=== PATIENT | female | born 1955 | race Caucasian/White ===

== ENCOUNTER 2019-11-13 11:39 | Outpatient (CLI) | payer MEDICARE, SELFPAY ==
[2019-11-13 12:38] LABS: HCT 40.2 % (36.0-46.0); HGB 13.3 g/dL (12.0-15.5); Mean Corp. HGB Concentration 33.1 g/dL (32.0-36.0); Mean Corpuscular Volume 90.5 fL (80-95); Mean Platelet Volume 10.7 fL (8.0-11.0); Platelet Count 275 x1000/uL (130-400); RBC 4.44 m/cumm (4.00-5.20); RBC Distribution Width 12.6 % (11.7-14.6)
[2019-11-13 12:59] LABS: ALT 66 U/L (14-59); AST 41 U/L (15-37); Albumin 3.8 g/dL (3.4-5.0); Alkaline Phosphatase 68 U/L (46-116); Anion Gap 7.6 mmol/L (3-11); BUN 21 mg/dL (7-18); Bilirubin, Total 0.5 mg/dL (0.2-1.0); CO2 32.4 mmol/L (21.0-32.0); CREATININE 0.97 mg/dL (0.55-1.02); Calcium 9.8 mg/dL (8.5-10.1); Calculated LDL 142 mg/dL; Chloride 102 mmol/L (98-107); Cholesterol 222 mg/dL (<200); Estimated GFR 57.64 (mL/min/1.73m2); Glucose 82 mg/dL (74-106); HDL Cholesterol 65 mg/dL (40-60); Potassium 4.1 mmol/L (3.5-5.1); Sodium 142 mmol/L (136-145); Total Protein 7.6 g/dL (6.4-8.2); Triglyceride 76 mg/dL (<150)
[2019-11-13 13:20] LABS: Vitamin D 25 Total 52.6 ng/ml (30-100)
== END 2019-11-13 11:59 ==
PROVIDERS: PCP Family Medicine; Visit Provider Family Medicine
DX: I10 Essential (primary) hypertension (principal); M81.0 Age-related osteoporosis without current pathological fracture
CPT/HCPCS: 36415; 80053; 80061; 82306; 85027

== ENCOUNTER 2019-11-14 01:31 | Outpatient (CLI) | payer MEDICARE, SELFPAY ==
--- NOTE | 2019-11-14 17:15 | DI.DEXA_ITS ---
EXAM: XR DEXA BONE DENSITY W/WO DIVINA INDICATION: Osteoporosis follow-up M81.0. COMPARISON: No exams were available for comparison TECHNIQUE: 2D digital imaging was performed. FINDINGS: Evaluation of the lateral spine shows no compression deformities. Evaluation of the left hip shows a total T-score of -0.3 and a Z-score of 0.9. This is within normal limits. This compares with a total T-score of -0.8 from 2015. Evaluation of the lumbar spine shows a total T-score of -1.6 and a Z-score of 0.1. This is consisten t with osteopenia and an increased fracture risk. This compares with a total T-score of -2.6 [id number] 5. IMPRESSION: Osteopenia in the lumbar spine.
== END 2019-11-14 01:51 ==
PROVIDERS: PCP Family Medicine; Visit Provider Family Medicine
DX: M81.0 Age-related osteoporosis without current pathological fracture (principal); M85.88 Other specified disorders of bone density and structure, other site
CPT/HCPCS: 77080

== ENCOUNTER 2020-10-31 02:46 | Outpatient (CLI) | payer MEDICARE, SELFPAY ==
[2020-10-31 13:07] LABS: ALT 64 U/L (14-59); AST 40 U/L (15-37); Albumin 3.9 g/dL (3.4-5.0); Alkaline Phosphatase 61 U/L (46-116); BUN 25 mg/dL (7-18); Bilirubin, Total 0.9 mg/dL (0.2-1.0); CREATININE 0.93 mg/dL (0.55-1.02); Calcium 9.1 mg/dL (8.5-10.1); Chloride 102 mmol/L (98-107); Glucose 104 mg/dL (74-106); Potassium 3.6 mmol/L (3.5-5.1); Sodium 141 mmol/L (136-145); Total Protein 7.8 g/dL (6.4-8.2)
== END 2020-10-31 03:06 ==
PROVIDERS: PCP Family Medicine; Visit Provider Family Medicine
DX: R94.5 Abnormal results of liver function studies (principal)
CPT/HCPCS: 36415; 80053

== ENCOUNTER 2021-04-24 09:43 | Outpatient (REF) | payer MEDICARE, SELFPAY ==
--- NOTE | 2021-04-24 08:30 | PAPFT_PTH ---
PATIENT: Sabrina Lyles LOC: [facility] U#:[id number] AGE/SX: 65/F ROOM: RE04/24/[address]: MARGO Buchanan : 1955 BED: DIS: 04/24/2021 SPEC #: [id number] RECD: 04/24/21 13:04 STATUS: KANDY REQ #: [id number] TOVA: 04/24/21 08:[address]: Ysamin Gamez DEPT: [facility] Cytology RECD BY: Nel Elias ENTERED: 04/24/21 13:04 SP TYPE: PAPFT OTHR DR: Hosea Askew MD Tissues: 1 - CX/ENDOCX FOR PAP SMEARS Procedures: PAP THIN PREP/[facility] Screening HPV DNA PROBE Comments: [id number]
== END 2021-04-24 09:44 | disposition home or self-care (01) ==
LOC: LBN 09:43
PROVIDERS: PCP Family Medicine; Visit Provider Nurse Practitioner Family
DX: Z12.4 Encounter for screening for malignant neoplasm of cervix (principal); Z11.51 Encounter for screening for human papillomavirus (HPV); Z01.419 Encounter for gynecological examination (general) (routine) without abnormal findings
CPT/HCPCS: 88142; 87624

== ENCOUNTER 2021-12-08 02:16 | Outpatient (CLI) | payer MEDICARE, SELFPAY ==
--- NOTE | 2021-12-08 07:45 | DI.RAD_ITS ---
Exam(s) XR WRIST RT COMPLETE EXAM: XR WRIST RT COMPLETE CLINICAL HISTORY: right CMC joint pain,M18.9,OA CMC JOINT OF THUMB. TECHNIQUE: 2D digital imaging was performed. COMPARISON: No exams were available for comparison FINDINGS: There is no evidence of acute fracture nor carpal dislocation. Mild negative ulnar variance is noted . There are advanced degenerative changes at the 1st carpometacarpal joint, this being the articulat ion between the thumb metacarpal and trapezium. IMPRESSION: DATA REPOSITORY: RADIATION DOSE DELIVERED:
== END 2021-12-08 02:36 ==
PROVIDERS: PCP Family Medicine; Visit Provider Family Medicine
DX: M18.11 Unilateral primary osteoarthritis of first carpometacarpal joint, right hand (principal); M25.541 Pain in joints of right hand
CPT/HCPCS: 73110

== ENCOUNTER 2022-03-06 02:16 | Outpatient (CLI) | payer MEDICARE, SELFPAY ==
[2022-03-06 12:23] LABS: Abs Immature Grans 0.01 10^3/uL (0.0-0.06); Absolute Basophil Count 0.04 10^3/uL (0.0-0.2); Absolute Eosinophil Count 0.26 10^3/uL (0.0-0.7); Absolute Lymphocyte Count 2.94 10^3/uL (1.2-3.4); Absolute Monocyte Count 0.44 10^3/uL (0.1-0.8); Basophils % 0.5; Eosinophils % 3.3; HCT 41.8 % (36.0-46.0); HGB 13.4 g/dL (11.2-15.7); Immature Grans % 0.1; Lymphocytes % 36.8; MCH 29.3 pg (27.0-33.0); MCHC 32.1 % (32.0-36.0); MCV 92 fL (80-95); MPV 11.5 fL (8.0-11.0); Monocytes % 5.5; Neutrophils % 53.8; Platelet Count 231 10^3/uL (130-400); RBC 4.57 10^6/uL (3.93-5.22); RDW 12.8 % (11.7-14.6); RDW-SD 42.8 fL; WBC 7.99 10^3/uL (4.4-10.8)
[2022-03-06 12:36] LABS: ALT 53 U/L (14-59); AST 35 U/L (15-37); Albumin 3.7 g/dL (3.4-5.0); Alkaline Phosphatase 90 U/L (46-116); Anion Gap 8.8 mmol/L (3-11); BUN 17 mg/dL (7-18); Bilirubin, Total 0.5 mg/dL (0.2-1.0); CO2 30.2 mmol/L (21.0-32.0); CREATININE 0.9 mg/dL (0.55-1.02); Calcium 9.1 mg/dL (8.5-10.1); Calculated LDL 138 mg/dL (<100); Chloride 105 mmol/L (98-107); Cholesterol 218 mg/dL (<200); Glucose 104 mg/dL (74-106); HDL Cholesterol 61 mg/dL (40-60); Potassium 3.9 mmol/L (3.5-5.1); Sodium 144 mmol/L (136-145); Total Protein 7.6 g/dL (6.4-8.2); Triglyceride 95 mg/dL (<150)
[2022-03-09 11:34] LABS: Hepatitis C Ab w Rflx HCV PCR Negative (Negative)
== END 2022-03-06 02:17 | disposition home or self-care (01) ==
LOC: LOS 02:17
PROVIDERS: PCP Family Medicine; Visit Provider Family Medicine
DX: I10 Essential (primary) hypertension (principal); R94.5 Abnormal results of liver function studies
CPT/HCPCS: 36415; 80053; 80061; 86803; 85025

== ENCOUNTER 2022-10-02 22:33 | Outpatient (REF) | payer MEDICARE, SELFPAY ==
[2022-10-02 23:10] LABS: Abs Immature Grans 0.02 10^3/uL (0.0-0.06); Absolute Basophil Count 0.03 10^3/uL (0.0-0.2); Absolute Eosinophil Count 0.29 10^3/uL (0.0-0.7); Absolute Lymphocyte Count 3.85 10^3/uL (1.2-3.4); Absolute Monocyte Count 0.71 10^3/uL (0.1-0.8); Absolute Neutrophil Count 6.31 10^3/uL (1.2-6.7); Basophils % 0.3; Eosinophils % 2.6; HCT 40.1 % (36.0-46.0); HGB 13.4 g/dL (11.2-15.7); Immature Grans % 0.2; Lymphocytes % 34.3; MCH 29.3 pg (27.0-33.0); MCHC 33.4 % (32.0-36.0); MCV 88 fL (80-95); MPV 11.4 fL (8.0-11.0); Monocytes % 6.3; Neutrophils % 56.3; Platelet Count 283 10^3/uL (130-400); RBC 4.58 10^6/uL (3.93-5.22); RDW 12.2 % (11.7-14.6); RDW-SD 39.2 fL; WBC 11.21 10^3/uL (4.4-10.8)
== END 2022-10-02 22:34 | disposition home or self-care (01) ==
LOC: LBN 22:33
PROVIDERS: PCP Family Medicine; Visit Provider Physician Assistant
DX: M79.675 Pain in left toe(s) (principal)
CPT/HCPCS: 84550; 85025

== ENCOUNTER 2022-12-07 03:06 | Outpatient (CLI) | payer MEDICARE, SELFPAY ==
[2022-12-07 13:04] LABS: ALT 41 U/L (14-59); AST 36 U/L (15-37); Albumin 3.8 g/dL (3.4-5.0); Alkaline Phosphatase 85 U/L (46-116); Anion Gap 10.1 mmol/L (3-11); BUN 19 mg/dL (7-18); Bilirubin, Total 0.8 mg/dL (0.2-1.0); CO2 28.9 mmol/L (21.0-32.0); Calcium 10.3 mg/dL (8.5-10.1); Calculated LDL 62 mg/dL (<100); Chloride 101 mmol/L (98-107); Cholesterol 138 mg/dL (<200); Estimated GFR 61.36 (mL/min/1.73m2); Glucose 128 mg/dL (74-106); HDL Cholesterol 66 mg/dL (40-60); Potassium 3.4 mmol/L (3.5-5.1); Sodium 140 mmol/L (136-145); Total Protein 8.6 g/dL (6.4-8.2); Triglyceride 52 mg/dL (<150)
[2022-12-07 13:17] LABS: Uric Acid 7.2 mg/dL (2.6-6.0)
== END 2022-12-07 03:07 | disposition home or self-care (01) ==
LOC: LOS 03:06
PROVIDERS: PCP Family Medicine; Visit Provider Family Medicine
DX: I10 Essential (primary) hypertension (principal); Z00.00 Encounter for general adult medical examination without abnormal findings; R94.5 Abnormal results of liver function studies; Z87.39 Personal history of other diseases of the musculoskeletal system and connective tissue
CPT/HCPCS: 36415; 80053; 80061; 84550

== ENCOUNTER 2023-02-03 03:14 | Outpatient (CLI) | payer MEDICARE, SELFPAY ==
[2023-02-03 12:32] LABS: Iron 57 ug/dL (50-170)
[2023-02-03 12:47] LABS: ALT 41 U/L (14-59); AST 33 U/L (15-37); Albumin 3.7 g/dL (3.4-5.0); Alkaline Phosphatase 91 U/L (46-116); Anion Gap 9.2 mmol/L (3-11); BUN 14 mg/dL (7-18); Bilirubin, Total 0.5 mg/dL (0.2-1.0); CO2 28.8 mmol/L (21.0-32.0); Calcium 9.5 mg/dL (8.5-10.1); Chloride 103 mmol/L (98-107); Estimated GFR 61.36 (mL/min/1.73m2); Glucose 125 mg/dL (74-106); Potassium 3.1 mmol/L (3.5-5.1); Sodium 141 mmol/L (136-145); Total Protein 8.2 g/dL (6.4-8.2); Uric Acid 7.2 mg/dL (2.6-6.0)
== END 2023-02-03 03:15 | disposition home or self-care (01) ==
LOC: LOS 03:14
PROVIDERS: PCP Family Medicine; Visit Provider Family Medicine
DX: D50.9 Iron deficiency anemia, unspecified (principal); I10 Essential (primary) hypertension; M1A.9XX0 Chronic gout, unspecified, without tophus (tophi)
CPT/HCPCS: 36415; 80053; 83540; 84550

== ENCOUNTER 2023-03-08 03:04 | Outpatient (CLI) | payer MEDICARE, SELFPAY ==
[2023-03-08 12:25] LABS: Anion Gap 11.9 mmol/L (3-11); BUN 20 mg/dL (7-18); CO2 24.1 mmol/L (21.0-32.0); CREATININE 1.1 mg/dL (0.55-1.02); Calcium 9.6 mg/dL (8.5-10.1); Chloride 105 mmol/L (98-107); Estimated GFR 54.73 (mL/min/1.73m2); Glucose 125 mg/dL (74-106); Potassium 4.4 mmol/L (3.5-5.1); Sodium 141 mmol/L (136-145); Uric Acid 6.5 mg/dL (2.6-6.0)
== END 2023-03-08 03:05 | disposition home or self-care (01) ==
LOC: LOS 03:04
PROVIDERS: PCP Family Medicine; Visit Provider Family Medicine
DX: I10 Essential (primary) hypertension (principal); M1A.9XX0 Chronic gout, unspecified, without tophus (tophi)
CPT/HCPCS: 36415; 80048; 84550

== ENCOUNTER 2023-12-13 05:05 | Outpatient (CLI) | payer MEDICARE, SELFPAY ==
[2023-12-13 10:42] LABS: ALT 43 U/L (14-59); AST 30 U/L (15-37); Alkaline Phosphatase 82 U/L (46-116); Anion Gap 14.5 mmol/L (3-11); BUN 19 mg/dL (7-18); Bilirubin, Total 0.7 mg/dL (0.2-1.0); CO2 25.5 mmol/L (21.0-32.0); CREATININE 1.1 mg/dL (0.55-1.02); Calcium 9.9 mg/dL (8.5-10.1); Chloride 103 mmol/L (98-107); Estimated GFR 54.39 (mL/min/1.73m2); Glucose 120 mg/dL (74-106); Potassium 4.1 mmol/L (3.5-5.1); Sodium 143 mmol/L (136-145); Total Protein 8.5 g/dL (6.4-8.2); Uric Acid 9.2 mg/dL (2.6-6.0)
== END 2023-12-13 05:06 | disposition home or self-care (01) ==
LOC: LBO 05:06
PROVIDERS: PCP Family Medicine; Visit Provider Family Medicine
DX: I10 Essential (primary) hypertension (principal); Z87.39 Personal history of other diseases of the musculoskeletal system and connective tissue; Z00.00 Encounter for general adult medical examination without abnormal findings
CPT/HCPCS: 36415; 80053; 84550

== ENCOUNTER → 2023-12-30 04:35 | Outpatient (CLI) | payer MEDICARE, SELFPAY ==
--- NOTE | 2023-12-30 08:00 | DI.DEXA_ITS ---
Exam(s) XR DEXA BONE DENSITY W/WO DIVINA EXAM: XR DEXA BONE DENSITY W/WO DIVINA CLINICAL HISTORY: osteopenia in 2020,osteopenia after menopause,m81.0 TECHNIQUE: COMPARISON: CR XR DEXA BONE DENSITY W/WO DIVINA from 11/14/2019 FINDINGS: Lateral Spine Image: Unremarkable. No compression deformities identified. Left hip: Total T-Score: -0.1. This compares to -0.3 on the prior examination. Total Z-Score: 1.3 T- and Z-scores: Within normal limits. Lumbar Spine: Total T-Score: -0.4. This compares to -1.6 on the prior examination. Total Z-Score: 1.7 T- and Z-scores: Within normal limits. IMPRESSION: No evidence of osteoporosis.
== END ==
PROVIDERS: PCP Family Medicine; Visit Provider Family Medicine
DX: M81.0 Age-related osteoporosis without current pathological fracture (principal); Z13.820 Encounter for screening for osteoporosis
CPT/HCPCS: 77080

== ENCOUNTER 2024-03-09 01:13 | Outpatient (CLI) | payer MEDICARE, SELFPAY ==
[2024-03-09 14:11] LABS: Abs Immature Grans 0.02 10^3/uL (0.0-0.06); Absolute Basophil Count 0.04 10^3/uL (0.0-0.2); Absolute Eosinophil Count 0.33 10^3/uL (0.0-0.7); Absolute Lymphocyte Count 3.91 10^3/uL (1.2-3.4); Absolute Monocyte Count 0.47 10^3/uL (0.1-0.8); Absolute Neutrophil Count 4.07 10^3/uL (1.2-6.7); Basophils % 0.5 %; Eosinophils % 3.7 %; HGB 13.9 g/dL (11.2-15.7); Immature Grans % 0.2 %; Lymphocytes % 44.2 %; MCH 30.5 pg (27.0-33.0); MCHC 33.9 % (32.0-36.0); MCV 90 fL (80-95); MPV 10.1 fL (8.0-11.0); Monocytes % 5.3 %; Neutrophils % 46.1 %; Platelet Count 232 10^3/uL (130-400); RBC 4.56 10^6/uL (3.93-5.22); RDW 12.2 % (11.7-14.6); RDW-SD 39.4 fL; WBC 8.84 10^3/uL (4.4-10.8)
[2024-03-09 14:23] LABS: ALT 55 U/L (14-59); AST 34 U/L (15-37); Albumin 3.7 g/dL (3.4-5.0); Alkaline Phosphatase 93 U/L (46-116); Anion Gap 10.8 mmol/L (3-11); BUN 14 mg/dL (7-18); Bilirubin, Total 0.7 mg/dL (0.2-1.0); CO2 27.2 mmol/L (21.0-32.0); CREATININE 0.9 mg/dL (0.55-1.02); Calcium 9.5 mg/dL (8.5-10.1); Chloride 104 mmol/L (98-107); Glucose 106 mg/dL (74-106); Potassium 3.7 mmol/L (3.5-5.1); Sodium 142 mmol/L (136-145); Total Protein 7.8 g/dL (6.4-8.2); Uric Acid 4.5 mg/dL (2.6-6.0)
== END 2024-03-09 01:14 | disposition home or self-care (01) ==
LOC: LBO 01:14
PROVIDERS: PCP Family Medicine; Visit Provider Family Medicine
DX: E79.0 Hyperuricemia without signs of inflammatory arthritis and tophaceous disease; Z00.00 Encounter for general adult medical examination without abnormal findings; I10 Essential (primary) hypertension
CPT/HCPCS: 36415; 80053; 84550; 85025

== ENCOUNTER 2024-03-21 08:26 | Day surgery (SDC) | payer MEDICARE, SELFPAY ==
[2024-03-21 09:04] VITALS: BP 127/76; PULSE 77; RESP 18; TEMP 36.5; O2SAT 96
--- NOTE | 2024-03-21 09:28 | COLE_ITS ---
Date of service: 03/21/24 Time of Service: 09:28 Colonoscopy Report Procedure Description: PROCEDURES PERFORMED: 1. Colonoscopy PREOPERATIVE DIAGNOSIS: Surveillance colonoscopy family history colon cancer POSTOPERATIVE DIAGNOSIS: Mild sigmoid diverticulosis, mild grade 1 internal hem orrhoids SURGEON: Clemente Guerrero MD INDICATION for procedure: The patient is a 68-year-old woman whose last colonoscopy was 9 years ago. At that time she did not know she had a family history of colon cancer. Now, her mother has from colon cancer and she also found out that her grandmother was known to have multiple advanced adenomatous polyps. She has no symptoms. Her last colonoscopy was unrevealing. FINDINGS: Terminal ileum was normal. No polyps were found. Minimal diverticular disease is noted in the sigmoid colon only, without inflammation or fibrosis. Minimal/mild hemorrhoid disease. SURVEILLANCE interval/FOLLOW-UP: 5-year intervals now because of the new/developed family history SPECIMENS: None EBL: Minimal COMPLICATIONS: None QUALITY of prep: Excellent Procedure in detail: The patient gave written consent and was in agreement with the indications, the potential risks as well as the benefits of the procedure. They were taken to the endoscopy suite and laid in the left lateral decubitus position. A timeout was performed and anesthesia was administered which was tolerated well. I started the procedure. Digital rectal and visual examination was performed and grossly within normal limits. A well-lubricated flexible colonoscope was then introduced and passed without any notable difficulty all the way to the cecum identified by the ileocecal valve and the appendiceal orifice. The terminal ileum was briefly intubated and looked normal. The scope was then slowly withdrawn with the above-noted findings. The patient tolerated the procedure well and was taken to the PACU in hemodynamically stable condition.
--- NOTE | 2024-03-21 09:30 | W.PM.DSUDISC ---
Date of service: 03/21/24 Time of Service: 09:30 Discharge Plan Disposition Patient Disposition: Home Condition: Good Discharge Details Attending Provider: Sp Guerrero Primary Care Provider: Julisa Lopez Home Meds and New Rx's Prescriptions: No Action omega-3 fatty acids [Fish Oil Concentrate] 1,000 mg capsule 1,000 mg PO DAILY colchicine [Colcrys] 0.6 mg tablet 0.6 mg PO DAILY PRN (Reason: gout) Rx Instructions: Day 1: Oral: 1.2 mg at the first sign of flare, followed by 0.6 mg after 1 hour. Then 1-2 time daily for next few days. hubbard juice Concentrate PO DIRECTED bisacodyl [Dulcolax (bisacodyl)] 5 mg tablet,delayed release (DR/EC) 5 mg PO ONCE Qty: 4 0RF Rx Instructions: Take per colonoscopy instructions provided by ordering providers office polyethylene glycol 3350 17 gram/dose powder 17 g PO ONCE Qty: 238 0RF Rx Instructions: Take per colonoscopy instructions provided by ordering providers office coenzyme Q10 [Co Q-10] 100 mg capsule 100 mg PO DAILY ibuprofen 200 mg capsule 200 mg PO Q6H PRN ferrous sulfate 325 mg (65 mg iron) tablet 325 mg PO DAILY loratadine 10 mg tablet 10 mg PO DAILY allopurinol 100 mg tablet 100 mg PO DAILY Qty: 90 3RF atenolol 25 mg tablet 25 mg PO DAILY Qty: 90 4RF furosemide 20 mg tablet 20 mg PO DAILY Qty: 30 5RF magnesium gluconate 27.5 mg magne- sium (500 mg) tablet 27.5 mg PO DAILY multivitamin [Daily Multi-Vitamin] 1 EACH tablet 1 ea PO DAILY vitamin B complex [B-Complex] 1 EACH tablet 1 ea PO DAILY cholecalciferol (vitamin D3) [Vitamin D3] 1,000 UNIT capsule 1,000 unit PO BID fluticasone propionate 220 mcg/actuation HFA aerosol inhaler 1 puff inhalation Q12H Qty: 12 12RF baclofen 10 mg tablet 10 mg PO BID PRN (Reason: pain, moderate) Qty: 60 2RF albuterol sulfate [Ventolin HFA] 90 mcg/actuation HFA aerosol inhaler 2 puff IH Q4H PRN (Reason: shortness of breath or wheezing) Qty: 18 11RF bupropion HCl 150 mg tablet sustained-release 12 hr 150 mg PO QAM Qty: 90 3RF atorvastatin 20 mg tablet 20 mg PO QHS Qty: 90 3RF Discharge Instructions Additional Instructions: FINDINGS: No polyps were found. Your colon and rectum appear healthy. There is some minimal diverticular disease in your sigmoid colon which is extremely common, benign and nothing needs to be done about it. Repeat another colonoscopy in 5 years because of your new family history. Stand Alone Forms: Colonoscopy Post Instructions Activity:: Activity as Tolerated Diet:: As Tolerated
--- NOTE | 2024-03-21 09:33 | ANES.PREOP_ITS ---
General Info Date of Service Date Performed: 03/21/24 Height: 4 ft 11.5 in Weight: 81.1 kg Body Mass Index (BMI): 35.5 Surgical Procedure: Operation Date: 03/21/24 09:50 Proposed Procedure Side Surgeon p Colonoscopy Sp Guerrero MD Actual Procedure Side Surgeon p Colonoscopy Not Applicable Sp Guerrero MD Pre-Op Diagnosis Post-Op Diagnosis screening colonoscopy Meds Allergies and Home Medications Allergies Allergy/AdvReac Type Severity Reaction Status Date / Time enviormental Allergy Mild Visual Uncoded 03/21/24 08:52 Disturbances Home Medication Medication Instructions Recorded multivitamin (Daily Multi-Vitamin 1 ea PO DAILY 04/17/13 tablet) vitamin B complex (B-Complex 1 ea PO DAILY 04/17/13 tablet) cholecalciferol (vitamin D3) 25 1,000 unit PO BID 03/16/16 mcg (1,000 unit) capsule (Vitamin D3) coenzyme Q10 100 mg capsule (Co 100 mg PO DAILY 12/03/21 Q-10) ibuprofen 200 mg capsule 200 mg PO Q6H PRN 12/03/21 omega-3 fatty acids 1,000 mg 1,000 mg PO DAILY 12/03/21 capsule (Fish Oil Concentrate) colchicine 0.6 mg tablet (Colcrys) 0.6 mg PO DAILY PRN gout 12/04/22 fluticasone propionate 220 1 puff inhalation Q12H #12 grams 12/08/22 mcg/actuation HFA aerosol inhaler baclofen 10 mg tablet 10 mg PO BID PRN pain, moderate 01/11/23 #60 tabs hubbard juice ml PO DIRECTED 05/18/23 albuterol sulfate 90 mcg/actuation 2 puff inhalation Q4H PRN 09/17/23 aerosol inhaler (Ventolin HFA) shortness of breath or wheezing #18 grams bupropion HCl 150 mg tablet,12 hr 150 mg PO QAM #90 tabs 11/29/23 sustained-release allopurinol 100 mg tablet 100 mg PO DAILY #90 tabs 12/15/23 ferrous sulfate 325 mg (65 mg 325 mg PO DAILY Anemia 12/15/23 iron) tablet loratadine 10 mg tablet 10 mg PO DAILY 12/15/23 atorvastatin 20 mg tablet 20 mg PO QHS #90 tabs 02/25/24 bisacodyl 5 mg tablet,delayed 5 mg PO ONCE #4 tabs 03/09/24 release (Dulcolax (bisacodyl)) polyethylene glycol 3350 17 17 g PO ONCE #238 grams 03/09/24 gram/dose oral powder atenolol 25 mg tablet 25 mg PO DAILY #90 tab-caps 03/15/24 furosemide 20 mg tablet 20 mg PO DAILY #30 tabs 03/15/24 magnesium gluconate 27.5 mg 27.5 mg PO DAILY 03/15/24 magnesium (500 mg) tablet Current Visit Medications: Current Medications Generic Name Dose Route Start Last Admin Trade Name Freq PRN Reason Stop Dose Admin Ringer's Solution 1,000 mls @ 80 mls/hr 03/21/24 06:00 IV 03/21/24 23:59 INFUSION ABENA IV Miscellaneous Supplies 1 each 03/21/24 06:00 Iv Access IV 03/21/24 23:59 DIRECTED ABENA Sodium Chloride 0 ml 03/21/24 06:00 Normal Saline Flush 10 Ml Syr IV 03/21/24 23:59 PRN PRN Sodium Chloride 0 ml 03/21/24 06:00 Normal Saline 10 Ml Vial IJ 03/21/24 23:59 DIRECTED PRN Sterile Water 0 ml 03/21/24 06:00 Water,Injection,Sterile 10 Ml Vial IJ 03/21/24 23:59 DIRECTED PRN PFSH Active Problems Active Problems: Problem Status Onset Code Peripheral edema R60.0 Hyperuricemia E79.0 Essential hypertension I10 Torticollis, 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 Had initial hyperuricemia, improving with diet. Osteopenia after menopause used fosamax x 7 years, on hold 2021. Repeat bone density 2023 normal. Sciatica Left began early 2013 Migraine light sensitive; aura historically Medical History Comments:: inspiratory wheezes; RN [place]H [place] 0913a Surgical History Surgical History Colonoscopy - IV Sedation Bunionectomies ? x2 Tobacco Smoking/Tobacco Use Status: Never Passive smoking exposure: No Second hand exposure: Yes Alcohol Alcohol Intake: former Substance Use Substance use: Never Substance use type: does not use Prental History History 0 Para Hx # Term Pregnancies Multiple births Hx # Pregnancies Ectopic pregnancies AB induced Hx Number of Living Children AB spontaneous Vital Signs and Lab Results Vital Signs Most Recent Vital Signs in EMR: Most Recent Vital Signs Temp Pulse Resp BP Pulse Ox 36.5 C 77 18 127/76 96 03/21/24 09:04 03/21/24 09:04 03/21/24 09:04 03/21/24 09:04 03/21/24 09:04 Lab Results Blood Type / Crossmatch: No Data to Display Complete Blood Count: White Blood Count 8.84 10^3/uL (4.4-10.8) 03/09/24 14:04 Red Blood Count 4.56 10^6/uL (3.93-5.22) 03/09/24 14:04 Hemoglobin 13.9 g/dL (11.2-15.7) 03/09/24 14:04 Hematocrit 41.0 % (36.0-46.0) 03/09/24 14:04 Platelet Count 232 10^3/uL (130-400) 03/09/24 14:04 Complete Metabolic Panel: Sodium 142 mmol/L (136-145) 03/09/24 14:04 Potassium 3.7 mmol/L (3.5-5.1) 03/09/24 14:04 Chloride 104 mmol/L (98-107) 03/09/24 14:04 Carbon Dioxide 27.2 mmol/L (21.0-32.0) 03/09/24 14:04 BUN 14 mg/dL (7-18) 03/09/24 14:04 Creatinine 0.9 mg/dL (0.55-1.02) 03/09/24 14:04 Est GFR (CKD-EPI 2020) 69.20 (mL/min/1.73m2) 03/09/24 14:04 Calcium 9.5 mg/dL (8.5-10.1) 03/09/24 14:04 Albumin 3.7 g/dL (3.4-5.0) 03/09/24 14:04 Glucose 106 mg/dL (74-106) 03/09/24 14:04 Liver Function Panel: Alanine Aminotransferase (ALT/SGPT) 55 U/L (14-59) 03/09/24 14: 04 Aspartate Amino Transf (AST/SGOT) 34 U/L (15-37) 03/09/24 14:04 Coagulation Panel: No Data to Display Cardiac Panel: No Data to Display Arterial Blood Gas: No Data to Display Venous Blood Gas: No Data to Display Pancreas Panel: No Data to Display Thyroid Panel: No Data to Display Infectious Disease: No Data to Display Blood Cultures: No Data to Display Toxicology Panel: No Data to Display Anesthesia Assessment and Plan Anesthesia History Personal History: No History of Anesthesia Complications Family History: No Family History of Anesthesia Complications Exercise Tolerance Exercise Tolerance: Metabolic Equivalents>4 Pertinent Negatives Pertinent Negatives: No Symptoms of GERD Cardiac & Pulmonary Exam Cardiac Exam: Normal S1/S2 Heart Sounds Pulmonary Exam: Wheezing Present Implantable Cardiac Device Does patient have a Pacemaker or an ICD?: No Airway Exam Known Difficult Airway: No Mallampati Class: 2 Mouth Opening: Normal (> 3cm) Thyromental Distance: Greater than 3 cm Neck Range of Motion: Full ROM Neck Circumference: Normal Teeth Condition: Normal Dentition ASA Classification ASA Score: ASA 2 Emergency Case?: No NPO Status NPO Status: NPO Clears >2 hours, Solids >8 hours Anesthesia Plan Resuscitation Status: Full Code Anesthesia Technique: General Anesthesia Airway Planned: Natural Airway Monitors Used: Standard Monitors
[2024-03-21 09:34] VITALS: BMI 35.5
[2024-03-21] MEDS: Lactated Ringers 1,000 ML 80 ML IV (09:34)
[2024-03-21 10:05] VITALS: BP 107/63; PULSE 75; RESP 16; TEMP 36.8; O2SAT 96
--- NOTE | 2024-03-21 10:08 | W.ANESPOSTOP ---
Postoperative Evaluation Date, Time and Location Date Performed: 03/21/24 Time Performed: 10:09 Patient Location: Day Surgery Unit Vital Signs Most Recent Imported Vital Signs: Most Recent Vital Signs Temp Pulse Resp BP Pulse Ox 36.8 C 75 16 107/63 96 03/21/24 10:05 03/21/24 10:05 03/21/24 10:05 03/21/24 10:05 03/21/24 10:05 Pain Score Most Recent Pain Score: Most Recent Pain Score Pain Level 0 03/21/24 10:05 Assessment Mental Status: Awake (Alert & Oriented to Patient Baseline) Airway and Respiratory Function: Patent airway with normal (patient baseline) respiratory exam Cardiovascular Function: Hemodynamically Stable Hydration Status: Adequately Hydrated Nausea & Vomiting: No Nausea or Vomiting Pain: Pt. Denies Any Pain Peripheral Nerve Block: Patient did not receive a nerve block
[2024-03-21 10:28] VITALS: BP 120/74; PULSE 70; RESP 16; TEMP 36.3; O2SAT 96
== END 2024-03-21 10:50 | disposition home or self-care (01) ==
PROVIDERS: PCP Family Medicine; Visit Provider Student in an Organized Health Care Education/Training Program
PROC: 0DJD8ZZ Inspection of Lower Intestinal Tract, Via Natural or Artificial Opening Endoscopic (ICD-10-PCS; CPT 45378; principal; 2024-03-21 09:45)
DX: Z12.11 Encounter for screening for malignant neoplasm of colon (principal); I10 Essential (primary) hypertension; K57.30 Diverticulosis of large intestine without perforation or abscess without bleeding; K64.0 First degree hemorrhoids; Z80.0 Family history of malignant neoplasm of digestive organs
CPT/HCPCS: G0105; 00123; J2001; J2704

== ENCOUNTER 2024-04-19 04:47 | Outpatient (CLI) | payer MEDICARE, SELFPAY ==
[2024-04-19 13:18] LABS: Anion Gap 7.6 mmol/L (3-11); BUN 14 mg/dL (7-18); CO2 32.4 mmol/L (21.0-32.0); CREATININE 0.9 mg/dL (0.55-1.02); Calcium 9.7 mg/dL (8.5-10.1); Chloride 104 mmol/L (98-107); Glucose 108 mg/dL (74-106); Magnesium 1.8 mg/dL (1.8-2.4); Potassium 3.5 mmol/L (3.5-5.1); Sodium 144 mmol/L (136-145)
== END 2024-04-19 04:48 | disposition home or self-care (01) ==
LOC: LBO 04:48
PROVIDERS: PCP Family Medicine; Visit Provider Family Medicine
DX: I10 Essential (primary) hypertension (principal)
CPT/HCPCS: 36415; 80048; 83735

== ENCOUNTER 2025-03-08 00:41 | Outpatient (CLI) | payer MEDICARE, SELFPAY ==
--- NOTE | 2025-03-08 13:41 | DI.RAD_ITS ---
Exam(s) XR KNEE RT 3V AP,LAT,MERA EXAM: XR KNEE RT 3V AP,LAT,MERA CLINICAL HISTORY: right knee pain,m25.561. TECHNIQUE: 2D digital imaging was performed. COMPARISON: No exams were available for comparison FINDINGS: 3 views No evidence of fracture. There is a small amount of increased joint fluid seen on the lateral view. There is no joint space narrowing. No osteophytes. Bone density normal. No osseous lesions. IMPRESSION: No significant osseous findings. However, there appears to be a small joint effusion. DATA REPOSITORY: RADIATION DOSE DELIVERED:
== END 2025-03-08 01:01 ==
LOC: DI 00:41
PROVIDERS: PCP Family Medicine; Visit Provider Physician Assistant
DX: M25.561 Pain in right knee (principal)
CPT/HCPCS: 73562

== ENCOUNTER 2025-08-17 11:01 | Outpatient (CLI) | payer MEDICARE, SELFPAY ==
--- NOTE | 2025-08-17 11:00 | RT.EKG_ITS ---
APPROVED REPORT Exam: Resting ECG Reason for Exam: Left arm pain Patient Location: O HR:66 bpm ECG Measurements Heart Rate 66 AXIS IN 138 P 45 QRSd 83 QRS 34 QT 388 T 35 QTc 407 Conclusion Sinus rhythm...normal P axis, V-rate 50- 99 Normal Electrocardiogram
== END 2025-08-17 11:02 | disposition home or self-care (01) ==
LOC: DI.CM 11:01
PROVIDERS: PCP Family Medicine; Visit Provider Family Medicine
DX: Z71.89 Other specified counseling (principal); M79.602 Pain in left arm
CPT/HCPCS: 93010